=== PATIENT | male | born 1950 | race Caucasian/White ===

== ENCOUNTER 2020-10-08 05:43 | Outpatient (CLI) | payer OTHER ==
[~2020-10-08] VITALS: Ht 172.7 cm; Wt 63.6 kg
[2020-10-08] MEDS ORDERED: [UNRECOGNIZED DRUG - CODE] PO (14:08)
[2020-10-08] MEDS ORDERED: citrical PO (14:08)
[2020-10-08] MEDS ORDERED: ZINC30TA2 PO (14:08)
[2020-10-08] MEDS ORDERED: MAGN250T13 PO (14:08)
[2020-10-08] MEDS ORDERED: CHOL500044 PO (14:08)
[2020-10-08] MEDS ORDERED: SELE200T11 PO (14:08)
[2020-10-08] MEDS ORDERED: MULT-1056 PO (14:08)
[2020-10-08] MEDS ORDERED: quercetin PO (14:08)
[2020-10-08] MEDS ORDERED: [UNRECOGNIZED DRUG - CODE] PO (14:08)
[2020-10-08] MEDS ORDERED: k2 PO (14:08)
[2020-10-08] MEDS ORDERED: LYCO10CA2 PO (14:08)
== END 2020-10-08 14:11 | disposition home or self-care (01) ==
LOC: PREOP 05:43
PROVIDERS: ATTEND Radiology Radiation Oncology
DX: Z01.818 Encounter for other preprocedural examination (principal)

== ENCOUNTER 2020-10-15 11:16 | Day surgery (SDC) | payer OTHER ==
[2020-10-15] VITALS (10 sets, daily range): BP systolic 111–123; BP diastolic 67–81
[~2020-10-15] VITALS: Ht 172.7 cm; Wt 63.6 kg
[~2020-10-15 11:16] MED LIST: CHOL500044 PO; LYCO10CA2 PO; MAGN250T13 PO; MULT-1056 PO; SELE200T11 PO; ZINC30TA2 PO; [UNRECOGNIZED DRUG - CODE] PO; [UNRECOGNIZED DRUG - CODE] PO; citrical PO; k2 PO; quercetin PO
[2020-10-15] MEDS: LACTATED RINGERS 1,000 ML IV PRN ×2 (11:55→13:35)
--- NOTE | 2020-10-15 11:57 | Progress Note-Pre Operative ---
Pre-Operative Progress Note H&P Reviewed The H&P was reviewed, patient examined and no changes noted. Date Seen by Provider: Oct 15, 2020 Time Seen by Provider: 11:30 Date H&P Reviewed: Oct 15, 2020 Time H&P Reviewed: 11:30 Pre-Operative Diagnosis: Prostate cancer cT2a, PSA 10.3, [place] 7 (3+4) HERBERT SORIA MD Oct 15, 2020 11:57
[2020-10-15] MEDS ORDERED: ACET1TAB43 PO (12:00)
[2020-10-15] MEDS ORDERED: CIPR-226 PO (12:00)
--- NOTE | 2020-10-15 12:04 | Discharge Inst-Simple/Standard ---
Discharge Inst-Standard Reconcile Patient Problems Problems Reviewed?: Yes Discharge Medications New, Converted or Re-Newed RX: RX Given to Pt/Family Patient Instructions/Follow Up Plan of Care/Instructions/FU: 1)Follow up with Dr. Montiel 11/12/20 at 2:15 p.m. 2)one month post implant ct scan at [facility] 11/14/20 at 10:00 a.m. Activity as Tolerated: Yes Discharge Diet: No Restrictions Other Inst to Patient Please instruct patient on molina catheter care and catheter removal for Tuesday10/20/20 first thing in the morning. HERBERT SORIA MD Oct 15, 2020 12:04
[2020-10-15] MEDS ORDERED: LIDOCAINE PF 2% 5 ML (XYLOCAINE) VIAL ONE (12:50)
[2020-10-15] MEDS ORDERED: proPOfol 200 MG/20 ML (DIPRIVAN) VIAL IV ONE (12:50)
[2020-10-15] MEDS ORDERED: ONDANSETRON 4 MG/2 ML (SDV) Z0FRAN ONE (12:50)
[2020-10-15] MEDS ORDERED: fentaNYL INJ 100 MCG/2 ML AMP ONE (12:50)
[2020-10-15] MEDS ORDERED: BACITRACIN OINTMENT 28 GM TUBE ONE (12:52)
[2020-10-15] MEDS ORDERED: GLYCOPYRROLATE 0.2 MG/ML (ROBINUL) 2 ML VIAL ONE (13:15)
[2020-10-15] MEDS ORDERED: SEVOFLURANE (ULTANE) 15 ML INHAL SOLN ONE (14:04)
--- NOTE | 2020-10-15 14:29 | Progress Note-Post Operative ---
Post-Operative Progess Note Surgeon (s)/Laborer Laboratory (s) Surgeon HERBERT SORIA MD Laborer Laboratory: Zurdo MENCHACA MD Pre-Operative Diagnosis Prostate cancer cT2a, PSA 10.3, [place] 7 (3+4) Post-Operative Diagnosis Same as pre op Procedure & Operative Findings Date of Procedure 10/15/20 Procedure Performed/Findings (1) 67% Cesium 131 permanent prostate seed implant (2) Injection of biodegradable hydrogel prostate-rectal spacer utilizing the [employer] Jasmeet system (3) Cystogram Prostate volume 36 cc Anesthesia Type General Estimated Blood Loss Estimated blood loss (mL): Minimal Specimens/Packing Specimens Removed None Packing: N/A HERBERT SORIA MD Oct 15, 2020 14:29
[2020-10-15] MEDS ORDERED: ONDANSETRON 4 MG/2 ML (SDV) Z0FRAN IVP PRN (14:30)
[2020-10-15] MEDS ORDERED: morphine INJ 10 MG/ML 1ML (SYR OR VIAL) IVP ONE (14:30)
--- NOTE | 2020-10-15 14:38 | Diagnostic Imaging Report ---
Result: HISTORY: 70 years-old Male with brachytherapy. COMPARISON: None. TECHNIQUE: Single intraoperative fluoroscopic image of the pelvis in the frontal projection. Fluoroscopic Time: 13 seconds FINDINGS/ IMPRESSION: Intraoperative fluoroscopic image was obtained during brachytherapy. Brachytherapy seeds are noted in the region of the prostate. Dictated by: Dictated on workstation # [id number]
== END 2020-10-15 16:35 ==
LOC: SDC 11:16
PROVIDERS: ATTEND Radiology Radiation Oncology
DX: C61 Malignant neoplasm of prostate (principal); G25.81 Restless legs syndrome; E78.00 Pure hypercholesterolemia, unspecified; J30.9 Allergic rhinitis, unspecified; Z83.3 Family history of diabetes mellitus; Z79.899 Other long term (current) drug therapy
CPT/HCPCS: 55874; 55876; 76000; 76965; 77290; 77318; 77332; 77370; 77470; 77778; 87081; C1715 ×2; C1889; C2643

== ENCOUNTER 2020-11-14 10:10 | Outpatient (RCR) | payer OTHER ==
[~2020-11-14 10:10] MED LIST changes: +ACET1TAB43 PO; +CIPR-226 PO
== END 2020-11-25 | disposition home or self-care (01) ==
LOC: ONC 10:10
PROVIDERS: ATTEND Radiology Radiation Oncology
DX: Z51.0 Encounter for antineoplastic radiation therapy (principal); C61 Malignant neoplasm of prostate; E78.00 Pure hypercholesterolemia, unspecified
CPT/HCPCS: 76873; 77290; 77295; 99204

== ENCOUNTER 2021-01-16 14:08 | Outpatient (RCR) | payer OTHER | END 2021-03-03 | disposition home or self-care (01) | LOC: ONC 14:08 | PROVIDERS: ATTEND Radiology Radiation Oncology | DX: Z51.0 Encounter for antineoplastic radiation therapy (principal); C61 Malignant neoplasm of prostate; E78.00 Pure hypercholesterolemia, unspecified | CPT/HCPCS: 77300; 77301; 77334; 77336; 77338; 77385 ==

== ENCOUNTER 2021-03-05 10:43 | Outpatient (RCR) | payer OTHER | END 2021-04-03 | disposition home or self-care (01) | LOC: ONC 10:43 | PROVIDERS: ATTEND Radiology Radiation Oncology | DX: C61 Malignant neoplasm of prostate (principal); E78.00 Pure hypercholesterolemia, unspecified ==